=== PATIENT | female | born 1995 | race Native Hawaiian/Other Pacific Islander ===

== ENCOUNTER 2017-02-22 01:39 | Emergency (ER) | payer OTHER ==
[2017-02-22 01:53] VITALS: BP 108/68; PULSE 68; RESP 16; TEMP 98.9; O2SAT 99
--- NOTE | 2017-02-22 02:15 | ED PDOC ---
HPI: Head Injury Time Seen by Provider: 02/22/17 02:02 Chief Complaint (Nursing): Trauma Chief Complaint (Provider): hit head on head board History Per: Patient History/Exam Limitations: no limitations Injury Occurred (Timing): Hours Ago: (1) Onset/Duration Of Symptoms: Hrs ( 1) Severity: Moderate Pain Scale Rating Of: 4 Loss Of Consciousness: No Front/Back Head: 1 - pain Additional Complaint(s): 21 yo F presents to ED with complaints of pain of right temporal area after hitting head onto wooden headboard approx 1 hr [employer]. Patient states pain is what prompted patient to come be evaluated. Struck headboard and no LOC noted. Denies nausea, vomiting, blurred vision, nasal rhinorhhea, ear discharge, laceration, dizziness, tongue biting. Past Medical History Reviewed: Historical Data, Nursing Documentation, Vital Signs Vital Signs: Last Vital Signs Temp 98.9 F 02/22/17 01:50 Pulse 68 02/22/17 01:50 Resp 16 02/22/17 01:50 BP 108/68 02/22/17 01:50 Pulse Ox 99 02/22/17 01:50 - Family History Family History: States: Unknown Family Hx - Allergies Allergies/Adverse Reactions: Allergies Allergy/AdvReac Type Severity Reaction Status Date / Time No Known Allergies Allergy Verified 02/22/17 01:50 Review of Systems ROS Statement: Except As Marked, All Systems Reviewed And Found Negative Eyes: Negative for: Pain, Vision Change ENT: Negative for: Ear Discharge, Nose Discharge Gastrointestinal: Negative for: Nausea, Vomiting Physical Exam - Reviewed Nursing Documentation Reviewed: Yes Vital Signs Reviewed: Yes - Physical Exam Appears: Positive for: Well, Non-toxic, No Acute Distress Head Exam: Positive for: ATRAUMATIC (tenderness to palpation of right temporal area, no skin abnormalities), NORMAL INSPECTION, NORMOCEPHALIC Skin: Positive for: Normal Color, Warm, DRY Eye Exam: Positive for: EOMI, Normal appearance, PERRL ENT: Positive for: Normal ENT Inspection, TM Is/Are (normal) Neck: Positive for: Normal, Painless ROM Cardiovascular/Chest: Positive for: Regular Rate, Rhythm Respiratory: Positive for: CNT, Normal Breath Sounds Gastrointestinal/Abdominal: Positive for: Normal Exam, Bowel Sounds, Soft. Negative for: Tenderness Extremity: Positive for: Normal ROM Neurologic/Psych: Positive for: Alert, medical payment poster II-XII, Oriented. Negative for: Motor/Sensory Deficits - ECG O2 Sat by Pulse Oximetry: 99 Pulse Ox Interpretation: Normal - Progress ED Course And Treament: Time: 0200 Impression: 21 yo F with right temporal pain 2ndary to hitting head onto head post. Neurologically intact. No signs of basilar skull fracture. No n/v or visual changes. No amnesia. Plan: -Ibuprofen 600mg PO x 1 -Apply ice to area -Discharge home with head injury precautions Disposition - Clinical Impression Clinical Impression: Minor head injury - Patient ED Disposition Is Patient to be Admitted: No Counseled Patient/Family Regarding: Diagnosis, Need For Followup - Disposition Disposition: Routine/Home Disposition Time: 02:30 Condition: IMPROVED Additional Instructions: follow up with your primary doctor in 1-2 days return to the ED with any worsening or concerning symptoms. Instructions: Head Injury (ED)
== END 2017-02-22 02:35 | disposition home or self-care (01) ==
LOC: H.ER 01:39
DX: S09.90XA Unspecified injury of head, initial encounter (principal); W22.8XXA Striking against or struck by other objects, initial encounter; Y92.003 Bedroom of unspecified non-institutional (private) residence as the place of occurrence of the external cause